=== PATIENT | female | born 1940 | race Caucasian/White ===

== ENCOUNTER 2017-01-27 16:19 | Emergency (ER) | payer BC ==
[2017-01-27] MEDS ORDERED: ASPIRIN 81 MG CHEWABLE TABLET PO ONE (16:41)
[2017-01-27] MEDS: NITROGLYCERIN 0.4MG SL TABLET #25 BTL SL ONE ×2 (16:54→17:55)
[2017-01-27 17:03] LABS: BASO % 0.8 % (0-6); EOS % 2.9 % (0-6); GRAN % 58.4 % (47-80); HEMATOCRIT 35.9 % (35.0-47.0); LYMPH % 29.4 % (16-45); MEAN CELL VOLUME 85.9 fl (81-97); MEAN CORPUSCULAR HEMOGLOBIN 28.7 pg (27-33); MEAN CORPUSCULAR HGB CONC 33.4 g/dl (32-36); MEAN PLATELET VOLUME 10.1 fl (7.4-10.4); MONO % 8.5 % (0-9); PLATELET COUNT 296 K/uL (130-400); RED BLOOD COUNT 4.18 M/uL (3.80-5.40); RED CELL DISTRIBUTION WIDTH 14.7 % (11.5-14.5); WHITE BLOOD COUNT W/O DIFF 6.5 K/uL (4.2-12.2)
[2017-01-27 17:33] LABS: BLOOD UREA NITROGEN 36 mg/dL (8-23); CKMB 1.9 ng/mL (<3.77); CREATINE PHOSPHOKINASE 45 U/L (26-192); CREATININE 2.3 mg/dL (0.5-0.9); EST GLOMERULAR FILTRATION RATE 22 mL/min; GLUCOSE,RANDOM 203 mg/dL (74-109)
[2017-01-27 17:40] LABS: TROPONIN I < 0.30 ng/mL (0.00-0.300)
--- NOTE | 2017-01-27 18:14 | Emergency Department Record ---
History of Present Illness - General Chief Complaint: Chest Pain Stated Complaint: CHEST PAIN Time Seen by Provider: 01/27/17 16:41 Source: Patient Mode of Arrival: Wheelchair Limitations: No limitations - History of Present Illness Initial Comments: pt has been having cp off and on for 2 days. it is squeezing. she denies other symptoms Onset/Timin -: Week(s) Onset: During rest Pain Radiation: Back Severity scale (1-10): 9 Quality: Sharp, Other Consistency: Intermittent Improves With: Rest Anginal Symptoms: Nausea Treatments Prior to Arrival: Other - Related Data Previous Rx's Medication Instructions Recorded Acetaminop W/ Codeine 300/30Mg 1 tab PO Q6H #15 tab 04/07/16 [Tylenol #3] Allergies Allergy/AdvReac Type Severity Reaction Status Date / Time oxycodone Allergy HIVES Verified 04/07/16 13:28 Travel Screening - Travel/Exposure Within Last 30 Days Have you traveled within the last 30 days?: No - Travel/Exposure Within Last Year Have you traveled outside the [place] in the last year?: No - Additonal Travel Details Have you been exposed to anyone with a communicable illness?: No Review of Systems Reviewed: No additional complaints except as noted below Constitutional: Reports: As per HPI. Denies: Chills, Fever, Malaise, Night sweats, Weakness, Weight change Eyes: Reports: As per HPI. Denies: Eye discharge, Eye pain, Photophobia, Vision change ENT: Reports: As per HPI. Denies: Congestion, Dental pain, Ear pain, Epistaxis , Hearing loss, Throat pain Respiratory: Reports: As per HPI. Denies: Cough, Dyspnea, Hemoptysis, Stridor, Wheezes Cardiovascular: Reports: As per HPI. Denies: Arrhythmia, Chest pain, Dyspnea on exertion, Edema, Murmurs, Orthopnea, Palpitations, Paroxysmal nocturnal dyspnea, Rheumatic Fever, Syncope Endocrine: Reports: As per HPI. Denies: Fatigue, Heat or cold intolerance, Polydipsia, Polyuria Gastrointestinal: Reports: As per HPI. Denies: Abdominal pain, Constipation, Diarrhea, Hematemesis, Hematochezia, Melena, Nausea, Vomiting Genitourinary: Reports: As per HPI. Denies: Abnormal menses, Discharge, Dyspareunia, Dysuria, Frequency, Hematuria, Incontinence, Retention, Urgency Musculoskeletal: Reports: As per HPI. Denies: Arthralgia, Back pain, Gout, Joint swelling, Myalgia, Neck pain Skin: Reports: As per HPI. Denies: Bruising, Change in color, Change in hair/ nails, Lesions, Pruritus, Rash Neurological: Reports: As per HPI. Denies: Abnormal gait, Confusion, Headache, Numbness, Paresthesias, Seizure, Tingling, Tremors, Vertigo, Weakness Psychiatric: Reports: As per HPI. Denies: Anxiety, Auditory hallucinations, Depression, Homicidal thoughts, Suicidal thoughts, Visual hallucinations Hematological/Lymphatic: Reports: As per HPI. Denies: Anemia, Blood Clots, Easy bleeding, Easy bruising, Swollen glands Past Medical History - SOCIAL HISTORY Smoking Status: Former smoker Alcohol Use: Rare Drug Use: None - RESPIRATORY Hx Respiratory Disorders: Yes Hx Asthma: Yes - CARDIOVASCULAR Hx Cardio Disorders: Yes Hx Heart Attack: Yes (dr told her may have had silent [place]) Hx Hypertension: Yes Comment:: cholesterol - NEURO Hx Neuro Disorders: No - GI Hx GI Disorders: No - Hx Genitourinary Disorders: No - ENDOCRINE Hx Endocrine Disorders: Yes Hx Diabetes: Yes (type 2) - MUSCULOSKELETAL Hx Musculoskeletal Disorders: Yes Hx Arthritis: Yes Comment:: hip pain - PSYCH Hx Psych Problems: Yes Hx Depression: Yes - HEMATOLOGY/ONCOLOGY Hx Hematology/Oncology Disorders: Yes Hx Cancer: Yes (breast) Hx Radiation Therapy: Yes Family Medical History Any Significant Family History?: No Family Hx Comment (NOT TO BE USED IN PLACE OF ITEMS BELOW): Father had Huntingtons Disease Hx Cancer: Mother *Cancer Comment: throat Physical Exam - General General Appearance: Alert, Oriented x3, Cooperative, Mild distress - Head Head exam: Normal inspection - Eye Eye exam: Normal appearance, PERRL, EOMI Pupils: Normal accommodation - ENT ENT exam: Normal exam, Mucous membranes moist, Normal external ear exam, Normal orophraynx Ear exam: Normal external inspection. negative: External canal tenderness Nasal Exam: Normal inspection. negative: Discharge, Sinus tenderness Mouth exam: Normal external inspection, Tongue normal Teeth exam: Normal inspection. negative: Dental caries Throat exam: Normal inspection. negative: Tonsillar erythema, Tonsillar exudate - Neck Neck exam: Normal inspection, Full ROM. negative: Tenderness - Respiratory Respiratory exam: Normal lung sounds bilaterally. negative: Respiratory distress - Cardiovascular Cardiovascular Exam: Regular rate, Normal rhythm, Normal heart sounds - GI/Abdominal GI/Abdominal exam: Soft, Normal bowel sounds. negative: Tenderness - Rectal Rectal exam: Deferred - exam: Deferred - Extremities Extremities exam: Normal inspection, Full ROM, Normal capillary refill. negative: Tenderness - Back Back exam: Reports: Normal inspection, Full ROM. Denies: Muscle spasm, Rash noted, Tenderness - Neurological Neurological exam: Alert, CN II-XII intact, Normal gait, Oriented X3 - Psychiatric Psychiatric exam: Normal affect, Normal mood - Skin Skin exam: Dry, Intact, Normal color, Warm Course Vital Signs 01/27/17 16:21 Temperature 98.2 F Pulse Rate 90 Respiratory 18 Rate Blood Pressure 127/70 Pulse Ox 96 - Reevaluation(s) Reevaluation #1: 01/27/17 18:12 pt got better with ntg. Medical Decision Making - Lab Data Result diagrams: 01/27/17 16:25 01/27/17 16:25 Lab Results 01/27/17 01/27/17 01/27/17 Range/Units 16:25 16:25 16:25 WBC 6.5 (4.2-12.2) K/uL RBC 4.18 (3.80-5.40) M/uL Hgb 12.0 (11.6-16.0) gm/dl Hct 35.9 (35.0-47.0) % MCV 85.9 (81-97) fl MCH 28.7 (27-33) pg MCHC 33.4 (32-36) g/dl RDW 14.7 H (11.5-14.5) % Plt Count 296 (130-400) K/uL MPV 10.1 (7.4-10.4) fl Gran % 58.4 (47-80) % Lymphocytes % 29.4 (16-45) % Monocytes % 8.5 (0-9) % Eosinophils % 2.9 (0-6) % Basophils % 0.8 (0-6) % D-Dimer 1.06 H (0-0.59) mg/L FEU Sodium 139 (136-145) mmol/L Potassium 3.7 (3.4-4.5) mmol/L Chloride 100 (98-107) mmol/L Carbon Dioxide 23.0 (22-29) mmol/L Anion Gap 16.0 (7-16) BUN 36 H (8-23) mg/dL Creatinine 2.3 H (0.5-0.9) mg/dL Estimated GFR 22 mL/min Random Glucose 203 H (74-109) mg/dL Calcium 9.6 (8.8-10.2) mg/dL Creatine Kinase 45 (26-192) U/L CK-MB (CK-2) 1.9 (<3.77) ng/mL Troponin I < 0.30 (0.00-0.300) ng/mL NT-Pro-B Natriuret Pep 126.00 (<450) pg/mL Disposition Disposition: Transfer Clinical Impression: Elevated d-dimer Chest pain Qualifiers: Chest pain type: unspecified Qualified Code(s): R07.9 - Chest pain, unspecified Disposition: Acute Care [facility] For Transfer: needs vq and warp coiler Accepting Physician: dr hurtado Time Discussed w/Accepting Physician: 18:42 Forms: Patient Portal Access Quality - Quality Measures Quality Measures: N/A - Blood Pressure Screening Does Patient Have Any of the Following: No Blood Pressure Classification: Pre-Hypertensive BP Reading Systolic Measurement: 127 Diastolic Measurement: 70 Screening for High Blood Pressure: < Pre-Hypertensive BP, F/U Documented > [ G8950] Pre-Hypertensive Follow-up Interventions: Follow-up with rescreen every year.
[2017-01-27] MEDS ORDERED: HEPARIN SODIUM 1000 UNIT/1 ML 10ML VIAL IVP ONE (18:43)
== END 2017-01-27 22:10 | disposition short-term general hospital (02) ==
LOC: ER 16:19
DX: R07.9 Chest pain, unspecified (principal); R79.89 Other specified abnormal findings of blood chemistry; R11.0 Nausea; I25.2 Old myocardial infarction; I10 Essential (primary) hypertension; Z87.891 Personal history of nicotine dependence
CPT/HCPCS: 80048; 82550; 82553; 83880; 84484; 85025; 85379; 93005; 93010; 96374; 99285

== ENCOUNTER 2017-03-05 15:00 | Observation (INO) | payer BC ==
[2017-03-05] MEDS ORDERED: HYDROCODONE/APAP 7.5/325MG TABLET PO ONE (15:07)
--- NOTE | 2017-03-05 15:14 | Emergency Department Record ---
History of Present Illness - General Chief complaint: Lower Extremity Pain Stated complaint: FELL RT KNEE Time Seen by Provider: 03/05/17 15:07 Source: Patient, EMS Mode of Arrival: Ambulatory Limitations: No limitations - History of Present Illness Initial comments: 76 yo female presents with right hip and knee pain. She fell at the local school that she was visiting. She was in the auditorium and did not see a set. This caused her to fall onto the floor landing on the right hip and knee. NO other injuries. No Head injury. NO neck pain. No back, chest, or abdominal pain. She is not on any anticoagulants. MD Complaint: Extremity pain, Joint pain -: Minutes(s) Location: Right History of Same: No -: Yes Arthralgia Radiation: Proximal, Distal Quality: Aching Consistency: Constant Improves with: Immobilization Worsens with: Walking, Weight bearing Associated Symptoms: Denies other symptoms - Related Data Previous Rx's Medication Instructions Recorded Acetaminop W/ Codeine 300/30Mg 1 tab PO Q6H #15 tab 04/07/16 [Tylenol #3] Allergies Allergy/AdvReac Type Severity Reaction Status Date / Time oxycodone Allergy HIVES Verified 04/07/16 13:28 Review of Systems Constitutional: Denies: Chills, Fever, Malaise, Weakness Eyes: Denies: Eye discharge, Eye pain, Photophobia ENT: Denies: Congestion, Throat pain Respiratory: Denies: Cough, Dyspnea, Hemoptysis, Stridor, Wheezes Cardiovascular: Denies: Chest pain, Palpitations, Syncope Endocrine: Denies: Fatigue Gastrointestinal: Denies: Abdominal pain, Diarrhea, Nausea, Vomiting Genitourinary: Denies: Dysuria, Hematuria, Urgency Musculoskeletal: Reports: As per HPI, Arthralgia, Myalgia. Denies: Back pain, Joint swelling, Neck pain Skin: Denies: Bruising, Change in color, Rash Neurological: Denies: Headache, Numbness, Weakness Psychiatric: Denies: Anxiety Hematological/Lymphatic: Denies: Blood Clots, Easy bleeding, Easy bruising, Swollen glands Past Medical History - SOCIAL HISTORY Smoking Status: Former smoker Drug Use: None - RESPIRATORY Hx Respiratory Disorders: Yes Hx Asthma: Yes - CARDIOVASCULAR Hx Cardio Disorders: Yes Hx Heart Attack: Yes ( told her may have had silent [place]) Hx Hypertension: Yes Comment:: cholesterol - NEURO Hx Neuro Disorders: No - GI Hx GI Disorders: No - Hx Genitourinary Disorders: No - ENDOCRINE Hx Endocrine Disorders: Yes Hx Diabetes: Yes (type 2) - MUSCULOSKELETAL Hx Musculoskeletal Disorders: Yes Hx Arthritis: Yes Comment:: hip pain - PSYCH Hx Psych Problems: Yes Hx Depression: Yes - HEMATOLOGY/ONCOLOGY Hx Hematology/Oncology Disorders: Yes Hx Cancer: Yes (breast) Hx Radiation Therapy: Yes Family Medical History Family Hx Comment (NOT TO BE USED IN PLACE OF ITEMS BELOW): Father had Huntingtons Disease Hx Cancer: Mother *Cancer Comment: throat Physical Exam - General General Appearance: Alert, Oriented x3, Cooperative, No acute distress Limitations: No limitations - Head Head exam: Atraumatic, Normocephalic, Normal inspection - Eye Eye exam: Normal appearance. negative: Conjunctival injection, Periorbital swelling, Periorbital tenderness - ENT ENT exam: Normal exam, Mucous membranes moist Ear exam: Normal external inspection Nasal Exam: Normal inspection Mouth exam: Normal external inspection - Neck Neck exam: Normal inspection, Full ROM. negative: Tenderness - Respiratory Respiratory exam: Normal lung sounds bilaterally. negative: Accessory muscle use, Chest wall tenderness, Decreased breath sounds, Respiratory distress, Rhonchi, Stridor, Wheezes - Cardiovascular Cardiovascular Exam: Regular rate, Normal rhythm, Normal heart sounds Peripheral Pulses: 2+: Radial (R), Radial (L) - GI/Abdominal GI/Abdominal exam: Soft. negative: Distended, Guarding, Rebound, Rigid, Tenderness - Rectal Rectal exam: Deferred - exam: Deferred - Extremities Extremities exam: Normal inspection, Normal capillary refill, Tenderness. negative: Calf tenderness, Pedal edema Image of Full Body: 1 - tenderness to the lateral hip, negative log roll but pain with lifting, not shortened. 2 - lateral knee tenderness, no abrasions or swelling - Back Back exam: Reports: Full ROM. Denies: CVA tenderness (R), CVA tenderness (L), Paraspinal tenderness, Tenderness, Vertebral tenderness - Neurological Neurological exam: Alert, Oriented X3. negative: Altered, Motor sensory deficit - Psychiatric Psychiatric exam: Normal affect, Normal mood. negative: Anxious, Depressed - Skin Skin exam: Dry, Intact, Normal color, Warm Course - Reevaluation(s) Reevaluation #1: 03/05/17 15:49 The XR's of the hip and knee were negative for acute injury. The pain attempted to stand on her own then with help and was unable due to pain without a 2 person lift assist. 03/05/17 15:57 The patient is not stable or safe discharge given she can not weight bear and lives alone 03/05/17 16:16 I discussed the results with the patient. She has too much pain to weight bear independently or with a walker making her a fall risk I discussed the case with Dr Alvarado The patient will be admitted for pain control, PT evaluation, and could consider CT if pain continues. Medical Decision Making - Lab Data Result diagrams: 03/05/17 16:04 03/05/17 16:04 Disposition Disposition: Admit Clinical Impression: Intractable pain Contusion of leg, right Qualifiers: Encounter type: initial encounter Qualified Code(s): S80.11XA - Contusion of right lower leg, initial encounter Disposition: Still a Patient at [facility] Decision to Admit: Admit from ER Decision to Admit Date: 03/05/17 Decision to Admit Time: 15:56 Condition: (1) Good Forms: Patient Portal Access Time of Disposition: 15:56 Quality - Quality Measures Quality Measures: N/A - Blood Pressure Screening Does Patient Have Any of the Following: No Blood Pressure Classification: Hypertensive Reading Systolic Measurement: 175 Diastolic Measurement: 69 Screening for High Blood Pressure: < Pre-Hypertensive BP, F/U Documented > [ G8950] Pre-Hypertensive Follow-up Interventions: Referral to alternative/primary care provider.
[2017-03-05] MEDS ORDERED: MORPHINE SULFATE 5 MG/ML PFS IVP ONE (16:04)
[2017-03-05 16:21] LABS: BASO % 0.5 % (0-6); GRAN % 65.8 % (47-80); HEMATOCRIT 34.5 % (35.0-47.0); HEMOGLOBIN 11.7 gm/dl (11.6-16.0); LYMPH % 23.3 % (16-45); MEAN CELL VOLUME 85.2 fl (81-97); MEAN CORPUSCULAR HEMOGLOBIN 28.9 pg (27-33); MEAN CORPUSCULAR HGB CONC 33.9 g/dl (32-36); MEAN PLATELET VOLUME 9.6 fl (7.4-10.4); MONO % 7.4 % (0-9); PLATELET COUNT 273 K/uL (130-400); RED BLOOD COUNT 4.05 M/uL (3.80-5.40); RED CELL DISTRIBUTION WIDTH 14.4 % (11.5-14.5); WHITE BLOOD COUNT W/O DIFF 6.6 K/uL (4.2-12.2)
[2017-03-05 16:34] LABS: INR 0.94; PARTIAL THROMBOPLASTIN TIME 25.4 SECONDS (24.5-39.1); PROTHROMBIN TIME (PATIENT) 10.1 SECONDS (9.5-12.1)
[2017-03-05 16:41] LABS: ALB/GLOB RATIO 1.2 (1.1-1.8); BILIRUBIN,TOTAL 0.2 mg/dL (0.2-1.0); TOTAL PROTEIN 7.3 g/dL (6.6-8.7)
[2017-03-05] MEDS: ACETAMINOPHEN 1,000 MG/100 ML BTL IVPB SCH ×2 (18:10→23:52)
[2017-03-05] MEDS: MORPHINE SULFATE 5 MG/ML PFS IVP PRN (21:38)
[2017-03-05] MEDS ORDERED: MONTELUKAST SODIUM 10MG TABLET PO SCH (22:00)
[2017-03-05] MEDS ORDERED: DIPHENHYDRAMINE HCL 25 MG CAPSULE PO ONE (23:56)
[2017-03-06] MEDS: MORPHINE SULFATE 5 MG/ML PFS IVP PRN (03:41)
[2017-03-06] MEDS: ACETAMINOPHEN 1,000 MG/100 ML BTL IVPB SCH ×2 (06:53→11:41)
--- NOTE | 2017-03-06 07:12 | RADIOLOGY REPORT ---
EXAM: RIGHT HIP, THREE VIEWS HISTORY: FALL. RIGHT HIP INJURY AND PAIN. TECHNIQUE: Three views of the right hip were obtained. Comparison: None. FINDINGS: Osteopenia. No acute fracture or dislocation. 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 IMPRESSION: OSTEOPENIA. NO ACUTE PROCESS OF THE RIGHT HIP. JOB NUMBER: [id number] MTDD
--- NOTE | 2017-03-06 07:14 | RADIOLOGY REPORT ---
EXAM: RIGHT KNEE, FOUR VIEWS HISTORY: FELL ON CONCRETE, RIGHT KNEE INJURY AND PAIN. TECHNIQUE: Four views of the right knee were obtained. Comparison: None. Encounter: Initial. FINDINGS: Osteopenia. Right knee arthroplasty. No acute fracture or joint effusion. IMPRESSION: NO ACUTE OSSEOUS ABNORMALITY OF THE RIGHT KNEE. JOB NUMBER: [id number] MTDD
--- NOTE | 2017-03-06 09:40 | Rehab Evaluation ---
Patient Information - Patient Information Diagnosis: Intracable leg pain after fall Ordered Treatment: PT Evaluate and Treat Status: Initial Evaluation Surgery: No Past Medical/Surgical Hx: PAST MEDICAL/SURGICAL HISTORY Past Surgical History neck shoulder knee replacement breast PMH - Respiratory Hx Respiratory Disorders Yes Hx Asthma Yes: singulair Hx of CPAP Yes PMH - Cardiovascular Hx Cardiovascular Disorders Yes Hx Heart Attack Yes: told her may have had silent [place] Hx Hypertension Yes Comment: cholesterol PMH - Neuro Hx Neurological Disorders No PMH - GI Hx Gastrointestinal Disorders No PMH - Hx Genitourinary Disorders No PMH - Endocrine Hx Endocrine Disorders Yes Hx Diabetes Yes: type 2, pills PMH - Musculoskeletal Hx Musculoskeletal Disorders Yes Hx Arthritis Yes Comment: thigh, knee, patel pain now PMH - Psych Hx Psychiatric Problems Yes Hx Depression Yes PMH - Hematology/Oncology Hx Hematology/Oncology Yes Disorders Hx Cancer Yes: breast 2007, lumpectomy Hx Radiation Therapy Yes Social History: Detail (Pt. reports she stood up to see her grandson at the school and as she walked to see him she didn't see the step and proceeded to fall and land on her right hip and knee. The patient reports increased pain in her R knee that goes up to her hip. On a pain scale of 0-10, the pt. reports her pain at 7/10 right now. Pt. reports she hasn't fallen in the past 6 months. Pt. lives alone in a ranch style home that has a basement. Patient's bedroom and bathroom are on the first floor. There are 2 steps leading into the house from the garage and 4 steps leading in from the front door. There is a railing on the right for both stairs. Pt. reports she ambulated without an AD prior to her fall, but does have a front wheeled walker at home. Pt. reports her bathroom has a regular shower with a shower chair and grab bars, and a higher toilet seat with grab bars. The pt. reports her laundry room is downstairs, but she rarely goes downstairs and only does laundry when necessary. Pt. reports she does have family that lives close by to help as needed. Before the fall, the pt. reports she was able to complete all ADL's (cooking, cleaning, ambulating, etc.) independently with no assistance.) Precautions: Jones, Fall - Time With Patient Total Time Spent With Patient (Min): 30 Treatment Procedures: Detail (Pt. required mod assist x1 for supine to sit transfer. Pt. grabbed onto PTs arm to help lift herself up. Pt. was independent with sit to stand transfer CGA x2. Pt. ambulated to the toilet CGA x1 with front wheeled walker and with decreased weight bearing on R LE. Pt. ambulated back to bed from toilet CGA x1 with walker for a total of 26 ft of ambulation. Pt. completed stand to sit transfer independently CGA x1. Pt. required min assist x1 for sit to supine transfer back into bed. Pt. needed assistance lifting R LE into bed. Pt. demonstrated independent bed mobility with scooting up in bed using her arms and L LE for assistance. Pt. was left supine in bed with call button assessable. Nursing was notified.) Objective Data - Pain Pain Present: Yes Pain Intensity: 7 Pain Scale Used: Numeric (1 - 10) - Mental Status Patient Orientation: Oriented x3 - Visual Perception Appears within normal limits for therapeutic activities - ROM Not within normal limits (Pt. exhibits decreased R hip flexion and knee flexion with ambulation secondary to pain.) - Strength/Tone Not within normal limits (L hip flexion 3+/5, L hip IR 4-/5, L hip ER 4-/5, L knee flexion 4-/5, L knee ext. 4-/5, L ankle PF 5/5, L ankle DF 4-/5. R hip flexion, pt. was unable to raise hip against gravity secondary to pain. R hip IR 3/5, R hip ER 3+/5, R knee flexion 4-/5, R knee ext. 3+/5, R ankle DF 3+/5, R ankle PF 5/5. Bilateral gross hip ABD and ADD 3+/5. Pt. had pain in her R knee and hip with all muscle strength assessments on R LE except with PF. Bilat shoulder flexion and ABD 3+/5.) - Coordination Appears within normal limits for therapeutic activities - Bed Mobility Needs Assist (Pt. required mod assist x1 for supine to sit transfer in bed and min assist x1 for sit to supine transfer back into bed. Pt. was independent with scooting up and down in bed.) - Transfers Needs Assist (See bed mobility. Pt. used grab bar when performing stand to sit transfer to use the toilet. Pt. pushed off the bed to assist with sit to stand transfer.) - Balance Balance Sitting: Good Balance Standing: Fair - Sensation Intact - Gait Detail (Pt. ambulated 23 feet with front wheeled walker CGA x1. Pt. exhibited decreased hip and knee flexion on the R LE with ambulation. Pt. had increased external tibial rotation on the R and ambulated with a step to gait pattern and wide base of support.) Therapy Assessment - Therapy Assessment Detail (Pt. presents with ROM deficits, muscle weakness, gait impairments, increased pain in R knee and hip, difficulty with transfers and bed mobility. PT recommended patient has someone at home to assist with transfers and mobility.Feel patient would be safe in home environment but may need assistance with bed mobility which a family member could provide. Pt. will benefit from in patient PT to help improve impairments and meet goals for PT.) Problem List - Problem List Physical Therapy Problem List: Detail (1. Decreased ROM 2. Muscle weakness 3. R hip and knee pain 4. Gait impairments) Goals - Goals Physical Therapy Goals: 1. Pt. will complete the Tintetti balance outcome measure assessment to help assess pt.'s fall risk. 2. Pt. will report decreased apprehension with weight bearing on R LE with ambulation with or without the use of front wheeled walker. 3. Pt. will be independent with bed mobility and all transfers. 4. Pt. will independently ambulate 100 ft with front wheeled walker exhibiting increased R hip flexion and knee flexion. Prognosis - Prognosis Good (With PT, pt. will be a good candidate to go back home.) Plan - Plan Physical Therapy Plan: Pt. to be seen Saturday-Saturday 1x/day until goals for inpatient PT are met. Pt. POC will include gait and balance training, bed mobility and transfer training, strengthing exercises and pain and edema management.
[2017-03-06] MEDS: HYDROCODONE/APAP 5/325MG TABLET PO PRN ×2 (09:51→14:12)
[2017-03-06] MEDS ORDERED: PATIENT OWN MED: AMLODIPINE 10 MG PO SCH (10:00)
[2017-03-06] MEDS ORDERED: VENLAFAXINE HCL 100 MG PO SCH (10:00)
[2017-03-06] MEDS ORDERED: PATIENT OWN MED: LOSARTAN 100 MG PO SCH (10:00)
[2017-03-06] MEDS ORDERED: LOSARTAN POTASSIUM 100 MG TABLET PO SCH (10:00)
[2017-03-06] MEDS ORDERED: GLIPIZIDE 10 MG PO SCH ×2 (10:00→17:30)
[2017-03-06] MEDS ORDERED: VENLAFAXINE HCL 150 MG PO SCH (10:00)
[2017-03-06] MEDS ORDERED: ENOXAPARIN 30 MG/0.3 ML SYR SQ SCH (10:30)
--- NOTE | 2017-03-06 12:38 | Discharge Note ---
VTE H&P Assessment - Risk for VTE Risk for VTE: Yes Risk Level: Moderate Risk Assessment Date: 03/06/17 Risk Assessment Time: 09:00 VTE Orders Placed or Will Be Placed: Yes Discharge Medications - Discharge Medications Prescriptions: Hydrocodone/Acetaminophen [Atkins 5-325 Tablet] 1 each PO Q6HR #30 tablet Home Medications: Ambulatory Orders Ergocalciferol (Vitamin D2) [Vitamin D2] 50,000 unit PO WEEKLY 09/17/14 [Last Taken 03/04/17] Glipizide 10 mg PO BID 09/17/14 [Last Taken 03/04/17] Montelukast Sodium [Singulair] 10 mg PO QHS 09/17/14 [Last Taken 03/04/17] Losartan Potassium [Cozaar] 100 mg PO DAILY 04/07/16 [Last Taken 03/04/17] Amlodipine Besylate [Norvasc] 10 mg PO DAILY 03/06/17 [Last Taken Unknown] Hydrocodone/Acetaminophen [Atkins 5-325 Tablet] 1 each PO Q6HR #30 tablet [Last Taken Unknown] Venlafaxine HCl 100 mg PO DAILY 03/06/17 [Last Taken Unknown] Discharge Note - Date Date of Discharge Note: 03/06/17 Condition: (1) Good Additional Instructions: follow up with Dr. Kasper in one week weds. walk with a walker please set up home nursing to help with any needs Prescriptions: Hydrocodone/Acetaminophen [Atkins 5-325 Tablet] 1 each PO Q6HR #30 tablet Forms: Patient Portal Access
--- NOTE | 2017-03-06 15:10 | History and Physical Report ---
DATE OF ADMISSION: 03/05/2017 CHIEF COMPLAINT/HISTORY OF CHIEF COMPLAINT: Fall. This 76-year-old female tripped at the school on a step that she did not see, went down on her leg and no loss of consciousness, no head injury, came to the emergency department for evaluation. She has pain in her right hip, right knee, and right mid shaft of the tib-fib, and ankle swelling. She was evaluated in the ER; x-rays of the knee and hip were negative. They tried to get her up and walk her to home. She was too much for both the ER doctor, Dr. Luca Rivas and [place], to get her up. They wanted her admitted for physical therapy to work with her and to let the pains cool off a little bit before sending her home, so she was admitted as an observation patient. PAST MEDICAL HISTORY: 1. Diabetes mellitus. 2. Hypertension. 3. Anxiety depression. 4. Vitamin D deficiency. 5. She has had coronary artery disease with a silent DC. 6. Hypercholesterolemia. 7. Arthritis. PAST SURGICAL HISTORY: She has had neck surgery, shoulder surgery, knee replacement of the right knee, and breast surgery. CURRENT MEDICATIONS ON ADMISSION: 1. Venlafaxine HCL 100 mg daily. 2. Amlodipine 10 mg daily. 3. Glipizide 10 mg b.i.d. 4. Singulair 10 mg at h.s. 5. Losartan 100 mg daily. 6. Vitamin D2 50,000 units weekly. 7. Acetaminophen with codeine, Tylenol #3 1 tab q.6h. p.r.n. ALLERGIES: OXYCODONE caused hives. FAMILY PSYCHOSOCIAL HISTORY: She is an exsmoker. She stopped 25 years ago. No drug or alcohol use. Her father had Dillon's disease. No other significant family history. SYSTEMS REVIEW: HEENT: No upper respiratory infection symptoms, cough, cold, or congestion. CARDIOVASCULAR: No chest pain, palpitations, or arrhythmias. RESPIRATORY: No shortness of breath, cough, cold, or congestion. GASTROINTESTINAL: No nausea or vomiting, diarrhea, black stools, or bloody stools. GENITOURINARY: No dysuria, hematuria, or frequency, or burning on urination. MUSCULOSKELETAL: She has arthritis and chronic pain to the right hip, see chief complaint. NEUROLOGIC: No CVA paralysis or paresthesias. GYNECOLOGIC: No lumps in her breast or abnormal vaginal bleeding. ENDOCRINE: She has type 2 diabetes mellitus. No hypothyroidism. INTEGUMENT: No rash, ulcer changes, or yellow skin. PHYSICAL EXAMINATION: GENERAL: Height is 5'6', weight is 215 pounds. VITAL SIGNS: Temperature is 98.1, pulse is 76, blood pressure 153/71, respiratory rate is 16, pulse OX is 94% on room air. HEENT: Pupils are equal, round, and reactive to light and accomodation. Extraocular muscles intact. Throat is clear. Nose is clear. Tympanic membranes are boles. Neck is supple. No jugular venous distention, no hepatojugular reflux. No carotid bruits. Thyroid is smooth. CARDIOVASCULAR: Regular rate and rhythm without murmurs, clicks, rubs, or gallops. RESPIRATORY: Clear to auscultation and percussion. ABDOMEN: Soft and nontender. No hepatosplenomegaly, no mass, no tenderness. Bowel sounds are active, no bruits. EXTREMITIES: There is pain to the right hip, pain in the right knee, and pain in the midshaft of the tib/fib. There is ecchymosis on the knee and the midshaft of the tib/fib area and also in the right ankle area. Range of motion is good on the ankle. The knee there is pain with flexion more than 90 degrees and the hip is painful, radiating down the leg when she moves, which may be chronic arthritic pain. Neurovascular is good. BREAST, GYNECOLOGIC, RECTAL EXAM: deferred. NEUROLOGIC: Cranial nerves 2 through 12 intact, no gross defects in sensation, normal strength, normal deep tendon reflexes equal bilaterally. Babinski's negative. Mental status alert and oriented x3. IMPRESSION: 1. Contusion of the right hip. 2. Contusion of the right knee. 3. Right ankle sprain. PLAN: 1. [place] 5 mg q.4h. 2. Walk with a walker. 3. Will continue her home meds at home. Physical therapy worked with her and as she is safe for going home at this time. YVON
[2017-03-06] MEDS ORDERED: ASPIRIN 81 MG TABEC PO SCH (22:00)
--- NOTE | 2017-03-07 12:31 | Discharge Summary ---
This is an observation patient. DATE OF DISCHARGE: 03/06/2017 DISCHARGE DIAGNOSES: 1. Contusion of the right hip, contusion of the right knee, and right ankle sprain. 2. Status post diabetes mellitus. 3. Status post coronary artery disease. 4. Status post hypertension. 5. Status post anxiety and depression. 6. Status post arthritis in the right hip. ATTENDING PHYSICIAN: Laith Alvarado DO REASON FOR HOSPITALIZATION: Fall and injured her right hip, knee, and lower leg. She was too painful to go home. She was admitted for observation for Physical Therapy to evaluate and let the pain cool off. She has a walker at home because she had a right knee replacement years ago. SIGNIFICANT FINDINGS: The hip x-ray was negative. The knee x-ray was negative. CBC with WBC 6600, hemoglobin 11.7, PT/INR normal. The chemistries were normal. BUN 28, creatinine 2.0. THERAPY PROVIDED: The patient was given morphine in the emergency department and [place] on the day of discharge. She is walking with a walker with physical therapy. HOSPITAL COURSE: Improved gradually. Still is guarded because she is concerned about being home alone but her family lives close by. CONDITION ON DISCHARGE: Much improved. DISCHARGE INSTRUCTIONS: Follow up with Dr. Kasper in 1 week. Walk with a walker. Continue her home medications. [place] 5 mg q.6 h. p.r.n. pain. Her home medications are Norvasc 10 mg daily, venlafaxine 100 mg daily (Effexor), glipizide 10 mg b.i.d., Singulair 10 mg at h.s., Cozaar 100 mg daily, D2 50,000 units weekly, Tylenol #3 - we will stop that while she is taking the [place]. CC: LORENE KASPER MD, FACP [facility]
[2017-03-12] MEDS ORDERED: ERGOCALCIFEROL 50000 UNIT PO SCH (10:00)
== END 2017-03-06 18:10 | disposition home health service (06) ==
LOC: ER 15:00 → MEDSURG 17:26
PROVIDERS: ADMIT Emergency Medicine; ATTEND Emergency Medicine
DX: S70.01XA Contusion of right hip, initial encounter (principal); S80.01XA Contusion of right knee, initial encounter; S93.401A Sprain of unspecified ligament of right ankle, initial encounter; W17.89XA Other fall from one level to another, initial encounter; Y93.9 Activity, unspecified; Y92.219 Unspecified school as the place of occurrence of the external cause; E11.9 Type 2 diabetes mellitus without complications; I10 Essential (primary) hypertension; E55.9 Vitamin D deficiency, unspecified; I25.10 Atherosclerotic heart disease of native coronary artery without angina pectoris; E78.00 Pure hypercholesterolemia, unspecified; Z87.891 Personal history of nicotine dependence
CPT/HCPCS: 80053; 85025; 85610; 85730; 93041; 96374; 99285; J1650

== ENCOUNTER 2017-03-20 22:01 | Emergency (ER) | payer BC ==
[2017-03-20 22:49] LABS: BASO % 0.2 % (0-6); EOS % 0.4 % (0-6); HEMATOCRIT 35.5 % (35.0-47.0); HEMOGLOBIN 11.8 gm/dl (11.6-16.0); LYMPH % 8.1 % (16-45); MEAN CELL VOLUME 84.1 fl (81-97); MEAN CORPUSCULAR HGB CONC 33.2 g/dl (32-36); MEAN PLATELET VOLUME 9.1 fl (7.4-10.4); MONO % 4.4 % (0-9); PLATELET COUNT 316 K/uL (130-400); RED BLOOD COUNT 4.22 M/uL (3.80-5.40); RED CELL DISTRIBUTION WIDTH 13.8 % (11.5-14.5); WHITE BLOOD COUNT W/O DIFF 13.5 K/uL (4.2-12.2)
[2017-03-20 23:06] LABS: CREATININE 1.9 mg/dL (0.5-0.9)
--- NOTE | 2017-03-20 23:27 | Emergency Department Record ---
History of Present Illness - General Chief complaint: Pain Stated complaint: PAIN Time Seen by Provider: 03/20/17 22:13 Source: Patient Mode of Arrival: EMS Limitations: No limitations - History of Present Illness Initial comments: pt fell 2 wks ago injuring her r hip and r knee. her xrays were negative but she was unable to bear weight so she was admitted. since then she has been having pt and improving slightly. she has had a great increase in pain today till she is unable to bear wt or move without great pain MD Complaint: Extremity pain Onset/Timin -: Days(s) Location: Right Severity scale (1-10): 7 Improves with: Immobilization Worsens with: Palpation, Rest Associated Symptoms: Denies other symptoms - Related Data Previous Rx's Medication Instructions Recorded Hydrocodone/Acetaminophen [[place] 1 each PO Q6HR #30 tablet 03/06/17 5-325 Tablet] Allergies Allergy/AdvReac Type Severity Reaction Status Date / Time oxycodone Allergy HIVES Verified 04/07/16 13:28 Travel Screening - Travel/Exposure Within Last 30 Days Have you traveled within the last 30 days?: No - Travel/Exposure Within Last Year Have you traveled outside the [place] in the last year?: No - Additonal Travel Details Have you been exposed to anyone with a communicable illness?: No - Travel Symptoms Symptom Screening: None Review of Systems Reviewed: No additional complaints except as noted below Constitutional: Reports: As per HPI. Denies: Chills, Fever, Malaise, Night sweats, Weakness, Weight change Eyes: Reports: As per HPI. Denies: Eye discharge, Eye pain, Photophobia, Vision change ENT: Reports: As per HPI. Denies: Congestion, Dental pain, Ear pain, Epistaxis , Hearing loss, Throat pain Respiratory: Reports: As per HPI. Denies: Cough, Dyspnea, Hemoptysis, Stridor, Wheezes Cardiovascular: Reports: As per HPI. Denies: Arrhythmia, Chest pain, Dyspnea on exertion, Edema, Murmurs, Orthopnea, Palpitations, Paroxysmal nocturnal dyspnea, Rheumatic Fever, Syncope Endocrine: Reports: As per HPI. Denies: Fatigue, Heat or cold intolerance, Polydipsia, Polyuria Gastrointestinal: Reports: As per HPI. Denies: Abdominal pain, Constipation, Diarrhea, Hematemesis, Hematochezia, Melena, Nausea, Vomiting Genitourinary: Reports: As per HPI. Denies: Abnormal menses, Discharge, Dyspareunia, Dysuria, Frequency, Hematuria, Incontinence, Retention, Urgency Musculoskeletal: Reports: As per HPI. Denies: Arthralgia, Back pain, Gout, Joint swelling, Myalgia, Neck pain Skin: Reports: As per HPI. Denies: Bruising, Change in color, Change in hair/ nails, Lesions, Pruritus, Rash Neurological: Reports: As per HPI. Denies: Abnormal gait, Confusion, Headache, Numbness, Paresthesias, Seizure, Tingling, Tremors, Vertigo, Weakness Psychiatric: Reports: As per HPI. Denies: Anxiety, Auditory hallucinations, Depression, Homicidal thoughts, Suicidal thoughts, Visual hallucinations Hematological/Lymphatic: Reports: As per HPI. Denies: Anemia, Blood Clots, Easy bleeding, Easy bruising, Swollen glands Past Medical History - SOCIAL HISTORY Smoking Status: Former smoker - RESPIRATORY Hx Respiratory Disorders: Yes Hx Asthma: Yes (singulair) Hx of CPAP: Yes - CARDIOVASCULAR Hx Cardio Disorders: Yes Hx Heart Attack: Yes ( told her may have had silent [place]) Hx Hypertension: Yes Comment:: cholesterol - NEURO Hx Neuro Disorders: No - GI Hx GI Disorders: No - Hx Genitourinary Disorders: No - ENDOCRINE Hx Endocrine Disorders: Yes Hx Diabetes: Yes (type 2, pills) - MUSCULOSKELETAL Hx Musculoskeletal Disorders: Yes Hx Arthritis: Yes Comment:: thigh, knee, patel pain now - PSYCH Hx Psych Problems: Yes Hx Depression: Yes - HEMATOLOGY/ONCOLOGY Hx Hematology/Oncology Disorders: Yes Hx Cancer: Yes (breast 2007, lumpectomy) Hx Radiation Therapy: Yes Family Medical History Any Significant Family History?: Yes Family Hx Comment (NOT TO BE USED IN PLACE OF ITEMS BELOW): Father had Huntingtons Disease Hx Cancer: Mother *Cancer Comment: throat Physical Exam - General General Appearance: Alert, Oriented x3, Cooperative, Moderate distress - Head Head exam: Normal inspection - Eye Eye exam: Normal appearance, PERRL, EOMI Pupils: Normal accommodation - ENT ENT exam: Normal exam, Mucous membranes moist, Normal external ear exam, Normal orophraynx Ear exam: Normal external inspection. negative: External canal tenderness Nasal Exam: Normal inspection. negative: Discharge, Sinus tenderness Mouth exam: Normal external inspection, Tongue normal Teeth exam: Normal inspection. negative: Dental caries Throat exam: Normal inspection. negative: Tonsillar erythema, Tonsillar exudate - Neck Neck exam: Normal inspection, Full ROM. negative: Tenderness - Respiratory Respiratory exam: Normal lung sounds bilaterally. negative: Respiratory distress - Cardiovascular Cardiovascular Exam: Regular rate, Normal rhythm, Normal heart sounds - GI/Abdominal GI/Abdominal exam: Soft, Normal bowel sounds. negative: Tenderness - Rectal Rectal exam: Deferred - exam: Deferred - Extremities Extremities exam: Normal capillary refill, Tenderness. negative: Full ROM Image of Full Body: 1 - exquisite tenderness - Back Back exam: Reports: Normal inspection, Full ROM. Denies: Muscle spasm, Rash noted, Tenderness - Neurological Neurological exam: Alert, CN II-XII intact, Normal gait, Oriented X3 - Psychiatric Psychiatric exam: Normal affect, Normal mood - Skin Skin exam: Dry, Intact, Normal color, Warm Course Vital Signs 03/20/17 22:03 Temperature 97.8 F Pulse Rate 98 H Respiratory 20 Rate Blood Pressure 216/95 Pulse Ox 97 Medical Decision Making - Lab Data Result diagrams: 03/20/17 22:44 03/20/17 22:44 Lab Results 03/20/17 03/20/17 Range/Units 22:44 22:44 WBC 13.5 H (4.2-12.2) K/uL RBC 4.22 (3.80-5.40) M/uL Hgb 11.8 (11.6-16.0) gm/dl Hct 35.5 (35.0-47.0) % MCV 84.1 (81-97) fl MCH 28.0 (27-33) pg MCHC 33.2 (32-36) g/dl RDW 13.8 (11.5-14.5) % Plt Count 316 (130-400) K/uL MPV 9.1 (7.4-10.4) fl Neutrophils % 89.0 H (47-80) % Band Neutrophils % 0.0 (0-5) % Lymphocytes % 8.1 L (16-45) % Monocytes % 4.4 (0-9) % Eosinophils % 0.4 (0-6) % Basophils % 0.2 (0-6) % Lymphocytes 8.0 L (16-45) % Monocytes 3.0 (0-9) % Basophils 0.0 (0-6) % Eosinophil Count 0.0 (0-6) % Sodium 137 (136-145) mmol/L Potassium 3.8 (3.4-4.5) mmol/L Chloride 100 (98-107) mmol/L Carbon Dioxide 22.0 (22-29) mmol/L Anion Gap 15.0 (7-16) BUN 26 H (8-23) mg/dL Creatinine 1.9 H (0.5-0.9) mg/dL Estimated GFR 27 mL/min Random Glucose 229 H (74-109) mg/dL Calcium 9.5 (8.8-10.2) mg/dL Disposition Disposition: Transfer Clinical Impression: Closed hip fracture Qualifiers: Encounter type: initial encounter Laterality: right Qualified Code(s): S72.001A - Fracture of unspecified part of neck of right femur, initial encounter for closed fracture Disposition: Acute Care Hospital Transfer Transfer To: [facility] Reason For Transfer: fractured hip Accepting Physician: soledad arriaza Time Discussed w/Accepting Physician: 23:58 Forms: Patient Portal Access Quality - Quality Measures Quality Measures: N/A - Blood Pressure Screening Does Patient Have Any of the Following: No, Active Dx of HTN Blood Pressure Classification: Hypertensive Reading Systolic Measurement: 216 Diastolic Measurement: 95 Screening for High Blood Pressure: Patient Exclusion, Hx of HTN [G9744]
[2017-03-20] MEDS: CLONIDINE HCL 0.1 MG TABLET PO ONE (23:44)
--- NOTE | 2017-03-22 06:49 | CT SCAN REPORT ---
DATE: 03/20/2017 at 2255. EXAM: CT OF THE PELVIS WITH TWO-DIMENSIONAL AND THREE-DIMENSIONAL REFORMATS. HISTORY: Severe right hip pain for two days. No reported injury. COMPARISON: Right hip radiographs dated 03/05/2017. TECHNIQUE: Contiguous axial images from the L5 level to the proximal femora were obtained without contrast. Sagittal and coronal two-dimensional MIP as well as 3D/MIP reformatted images were obtained for better anatomic delineation. FINDINGS: Advanced degenerative disc disease at L5-S1. 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 There is an acute, mildly displaced, partially impacted subcapital/transcervical fracture of the right femoral neck with mild to moderate varus angulation. Mild osteoarthritic change of the femoroacetabular joints manifested by joint space narrowing and small osteophytes. No additional fracture. Enthesophyte formation at the common hamstring insertions. Visceral pelvis demonstrates moderate calcification of the common iliac arteries. Moderate sigmoid colon diverticulosis. IMPRESSION: 1. ACUTE, MILDLY DISPLACED, PARTIALLY IMPACTED FRACTURE OF THE RIGHT FEMORAL NECK ABOVE. THERE IS MILD TO MODERATE VARUS ANGULATION. 2. MILD OSTEOARTHRITIC CHANGE OF THE FEMOROACETABULAR JOINTS WELL THE SACROILIAC JOINTS. JOB NUMBER: [id number] MTDD
== END 2017-03-21 00:19 | disposition short-term general hospital (02) ==
LOC: ER 22:01
DX: S72.011A Unspecified intracapsular fracture of right femur, initial encounter for closed fracture (principal); I10 Essential (primary) hypertension; E11.9 Type 2 diabetes mellitus without complications; Z79.84 Long term (current) use of oral hypoglycemic drugs; Z87.891 Personal history of nicotine dependence; X58.XXXA Exposure to other specified factors, initial encounter
CPT/HCPCS: 80048; 85027; 99285

== ENCOUNTER 2018-04-26 17:06 | Emergency (ER) | payer BC ==
--- NOTE | 2018-04-26 17:31 | Emergency Department Record ---
History of Present Illness - General Chief Complaint: Cough Stated Complaint: COUGH Time Seen by Provider: 04/26/18 17:27 Source: Patient Mode of Arrival: Ambulatory Limitations: No limitations - History of Present Illness Initial Comments: 77 yo female presents to ED for evaluation of non-productive cough symptoms for the past 3 days. Patient denies fever symptoms but does report aching in the ribs from coughing. Patient denies history of asthma or COPD, reports similar [facility] was treated with antibiotic and phenergan with codeine cough suppressant. MD Complaint: Cough Onset/Timin -: Days(s) Severity: Moderate Quality: Aching Consistency: Constant Improves With: Nothing Worsens With: Nothing Associated Symptoms: Denies other symptoms Treatments Prior to Arrival: None - Related Data Home Medications Medication Instructions Recorded Confirmed Last Taken Amlodipine Besylate [Norvasc] 04/26/18 Unknown Atorvastatin Calcium [Lipitor] 20 mg PO DAILY 04/26/18 04/26/18 04/26/18 Previous Rx's Medication Instructions Recorded Hydrocodone/Acetaminophen [[place] 1 each PO Q6HR #30 tablet 03/06/17 5-325 Tablet] Oseltamivir Phosphate [Tamiflu] 75 mg PO BID #10 capsule 04/26/18 Allergies Allergy/AdvReac Type Severity Reaction Status Date / Time oxycodone Allergy HIVES Verified 04/26/18 17:22 Review of Systems Constitutional: Denies: Chills, Fever, Malaise, Night sweats Eyes: Denies: Eye discharge, Eye pain ENT: Denies: Congestion, Ear pain, Epistaxis Respiratory: Reports: Cough. Denies: Dyspnea Cardiovascular: Denies: Chest pain, Dyspnea on exertion Endocrine: Denies: Fatigue, Heat or cold intolerance Gastrointestinal: Denies: Abdominal pain, Nausea, Vomiting Genitourinary: Denies: Incontinence, Retention Musculoskeletal: Denies: Arthralgia, Back pain Skin: Denies: Bruising, Change in color Neurological: Denies: Abnormal gait, Confusion, Headache, Tingling, Tremors Psychiatric: Denies: Anxiety Hematological/Lymphatic: Denies: Anemia, Blood Clots Past Medical History - SOCIAL HISTORY Smoking Status: Former smoker - RESPIRATORY Hx Respiratory Disorders: Yes Hx Asthma: Yes (mae) Hx of CPAP: Yes - CARDIOVASCULAR Hx Cardio Disorders: Yes Hx Heart Attack: Yes (dr told her may have had silent [place]) Hx Hypertension: Yes Comment:: cholesterol - NEURO Hx Neuro Disorders: No - GI Hx GI Disorders: No - Hx Genitourinary Disorders: No - ENDOCRINE Hx Endocrine Disorders: Yes Hx Diabetes: Yes (type 2, pills) - MUSCULOSKELETAL Hx Musculoskeletal Disorders: Yes Hx Arthritis: Yes Comment:: thigh, knee, patel pain now - PSYCH Hx Psych Problems: Yes Hx Depression: Yes - HEMATOLOGY/ONCOLOGY Hx Hematology/Oncology Disorders: Yes Hx Cancer: Yes (breast 2007, lumpectomy) Hx Radiation Therapy: Yes Family Medical History Family Hx Comment (NOT TO BE USED IN PLACE OF ITEMS BELOW): Father had Huntingtons Disease Hx Cancer: Mother *Cancer Comment: throat Physical Exam - General General Appearance: Alert, Oriented x3, Cooperative, No acute distress Limitations: No limitations - Head Head exam: Atraumatic, Normocephalic, Normal inspection Head exam detail: negative: Abrasion, Contusion, Tejeda's sign, General tenderness, Hematoma, Laceration - Eye Eye exam: Normal appearance. negative: Conjunctival injection, Periorbital swelling, Periorbital tenderness, Scleral icterus - ENT Ear exam: negative: Auricular hematoma, Auricular trauma Nasal Exam: negative: Active bleeding, Discharge, Dried blood, Foreign body Mouth exam: negative: Drooling, Laceration, Muffled voice, Tongue elevation - Neck Neck exam: Normal inspection. negative: Meningismus, Tenderness - Respiratory Respiratory exam: Normal lung sounds bilaterally. negative: Respiratory distress, Rhonchi, Stridor, Wheezes - Cardiovascular Cardiovascular Exam: Regular rate, Normal rhythm, Normal heart sounds - GI/Abdominal GI/Abdominal exam: Soft. negative: Pulsatile mass, Rebound, Rigid - Rectal Rectal exam: Deferred - exam: Deferred - Extremities Extremities exam: Normal inspection. negative: Pedal edema, Tenderness - Back Back exam: Denies: CVA tenderness (R), CVA tenderness (L) - Neurological Neurological exam: Alert, Normal gait, Oriented X3 - Psychiatric Psychiatric exam: Normal affect, Normal mood - Skin Skin exam: Normal color. negative: Abrasion Type of lesion: negative: abrasion Course - Reevaluation(s) Reevaluation #1: 04/26/18 17:33 MAPS was reviewed Patient filled 30 days supply of promethazine with codeine syrup yesterday. Will obtain CXR and influenza swab and re-evaluate. Reevaluation #2: 04/26/18 17:49 Influenza A positive CXR: No acute process Patient was updated on all results, will initiate Tamiflu BID daily for 5 days. Disposition Disposition: Discharge Clinical Impression: Influenza A Disposition: Home, Self-Care Condition: (2) Stable Instructions: Acute Bronchitis (ED) Additional Instructions: Return to ED if your symptoms worsen if you have any concerns. Tamiflu as directed. Follow-up with Dr. Kasper in 3-5 days as directed. Prescriptions: Oseltamivir Phosphate [Tamiflu] 75 mg PO BID #10 capsule Forms: Patient Portal Access Time of Disposition: 17:56 Quality - Quality Measures Quality Measures: N/A - Blood Pressure Screening Does Patient Have Any of the Following: No Blood Pressure Classification: Pre-Hypertensive BP Reading Systolic Measurement: 154 Diastolic Measurement: 81 Screening for High Blood Pressure: < Pre-Hypertensive BP, F/U Documented > [ [id number]] Pre-Hypertensive Follow-up Interventions: Referral to alternative/primary care provider.
[2018-04-26 17:46] LABS: INFLUENZA A POSITIVE (NEGATIVE); INFLUENZA B NEGATIVE (NEGATIVE)
[2018-04-26] MEDS: OSTELTAMIVIR 75 MG CAP PO ONE (18:06)
--- NOTE | 2018-04-28 14:29 | RADIOLOGY REPORT ---
DATE: 04/26/2018. EXAM: TWO VIEWS OF THE CHEST. HISTORY: The patient has had a cough for two days. TECHNIQUE: Two views of the chest were obtained. FINDINGS: The cardiomediastinal silhouette is within normal limits in size and contour. The geeta appear unremarkable. There is no radiographic evidence of a focal consolidation, pleural effusion, or pneumothorax. IMPRESSION: NO RADIOGRAPHIC EVIDENCE OF AN ACUTE INTRATHORACIC PROCESS. JOB NUMBER: [id number] MTDD
== END 2018-04-26 18:10 | disposition home or self-care (01) ==
LOC: ER 17:06
DX: J10.1 Influenza due to other identified influenza virus with other respiratory manifestations (principal); I10 Essential (primary) hypertension; Z87.891 Personal history of nicotine dependence
CPT/HCPCS: 71046; 87400; 99283; 99284